=== PATIENT | female | born 1970 | race Caucasian/White ===

== ENCOUNTER 2016-12-25 09:13 | Day surgery (SDC) | payer OTHER ==
[~2016-12-25] VITALS: Ht 162.6 cm; Wt 106.1 kg
[~2016-12-25 09:13] MED LIST: ADVIL,NUPRIN,M200 MG PO; CELEXA20 MG PO; CELEXA40 MG PO; HUMIRA40 MG/0.1 SC; IRON325 MG PO; MEGACE40 MG PO; TYLENOL EXTRA500 MG PO; VITAMIN B125000 MCG PO; VITAMIN D-32000 UNI2 PO; XANAX0.5 MG PO
[2016-12-25 09:44] VITALS: BP 168/87
[2016-12-25 18:24] VITALS: BP 148/94
[2016-12-25 19:48] VITALS: BP 134/91
[2016-12-25 23:34] VITALS: BP 125/55
[2016-12-26 03:35] VITALS: BP 127/68
[2016-12-26 07:02] VITALS: BP 155/76
[2016-12-26 07:29] LABS: EOSINOPHIL (%) 0.2 % (0-5); HEMATOCRIT 37.5 % (36.0-46.0); IMMATURE GRANULOCYTE (%) 0.3 % (0.0-0.7); INSTRUMENT ABS NEUTROPHIL CT 7.7 K/uL; MCH 26.7 PG (29.0-34.0); MCHC 32.3 G/DL (30.0-36.0); MCV 82.6 FL (83-99); MEAN PLAT.VOLUME 11.8 uM^3 (9.5-12.4); MONOCYTE (%) 7.8 % (3-12); MONOCYTE COUNT 0.7 K/uL (0-0.8); NEUTROPHIL (%) 81.3 % (45-76); NEUTROPHIL COUNT 7.7 K/uL (1.8-6.4); PLATELET COUNT 211 K/uL (156-360); RBC DIS.WIDTH-SD 39.3 % (39-53); RED BLOOD COUNT 4.54 M/uL (3.80-5.20)
[2016-12-26 07:35] LABS: ANION GAP 8 MEQ/L (2-14); CHLORIDE 104 MEQ/L (99-109); GFR ESTIMATE (CALCULATED) > 59 mL/min/; GLUCOSE 105 mg/dL (70-99); SAMPLE HEMOLYSIS CHECK 0; SAMPLE ICTERIC CHECK 0; SAMPLE LIPEMIA CHECK 0; SODIUM 138 MEQ/L (136-147); UREA NITROGEN (BUN) 10 mg/dL (9-23)
[2016-12-26 07:49] LABS: WHITE BLOOD COUNT 9.5 K/uL (4.1-10.2)
[2016-12-26 12:05] VITALS: BP 176/82
== END 2016-12-26 12:59 | disposition home or self-care (01) ==
LOC: SDC 09:13 → 2SOUTH 13:33 → 2EAST 18:13
PROVIDERS: Obstetrics & Gynecology Gynecology
DX: N92.1 Excessive and frequent menstruation with irregular cycle (principal); N94.6 Dysmenorrhea, unspecified; D25.0 Submucous leiomyoma of uterus; N80.0 Endometriosis of uterus; N85.6 Intrauterine synechiae; K50.00 Crohn's disease of small intestine without complications; F17.200 Nicotine dependence, unspecified, uncomplicated; E66.09 Other obesity due to excess calories; Z68.41 Body mass index [BMI] 40.0-44.9, adult; Z83.3 Family history of diabetes mellitus; Z82.49 Family history of ischemic heart disease and other diseases of the circulatory system
CPT/HCPCS: 80048; 85025; 87086; 88307; G0378; J0131; J0330; J0690; J1100; J1170; J1644; J1885; J2250; J2270; J2405; J2710; J3010; J7120

== ENCOUNTER 2017-08-26 18:14 | Emergency (ER) | payer OTHER ==
[~2017-08-26] VITALS: Ht 162.6 cm; Wt 104.2 kg
[2017-08-26 19:20] LABS: HEMATOCRIT 44.6 % (36.0-46.0); MCH 28.3 PG (29.0-34.0); MCHC 33.6 G/DL (30.0-36.0); MCV 84.2 FL (83-99); MEAN PLAT.VOLUME 11.1 uM^3 (9.5-12.4); PLATELET COUNT 222 K/uL (156-360); RBC DIS.WIDTH-CV 14.2 % (11.8-14.6); RBC DIS.WIDTH-SD 43.5 % (39-53); WHITE BLOOD COUNT 7.9 K/uL (4.1-10.2)
[2017-08-26 19:31] LABS: CHLORIDE 100 mEq/L (99-109); POTASSIUM 3.9 mEq/L (3.7-5.4); SODIUM 139 mEq/L (136-147)
[2017-08-26 19:34] LABS: GLUCOSE 93 mg/dL (70-99)
[2017-08-26 19:35] LABS: ANION GAP 14 MEQ/L (2-14); TOTAL BILIRUBIN 0.6 mg/dL (0.0-1.0)
[2017-08-26 19:37] LABS: ALKALINE PHOSPHATASE 106 IU/L (3-129); GFR ESTIMATE (CALCULATED) > 59 mL/min/
[2017-08-26 19:38] LABS: UREA NITROGEN (BUN) 19 mg/dL (9-23)
[2017-08-26 19:47] LABS: QUANTITATIVE HCG < 4.0 MIU/ML
[2017-08-26 21:00] LABS: ADD MIUA? YES; BILIRUBIN NEGATIVE; BLOOD SMALL; COLOR YELLOW ((YELLOW)); GLUCOSE (STRIP) NEGATIVE; KETONES 5; LEUKOCYTES NEGATIVE; NITRITE NEGATIVE; PROTEIN (STRIP) 30
[2017-08-26 21:10] LABS: BACTERIA NONE SEEN /HPF; EPITHELIAL CELLS 1+ /HPF; HYALINE CASTS 0-5 /LPF; MUCUS TRACE /LPF; RED BLOOD CELLS 0-5 /HPF (0-5); UCUL ADDED? NO; UNCLASSIFIED CASTS 0-5 /LPF; WHITE BLOOD CELLS 0-5 /HPF (0-5)
[2017-08-26 21:44] LABS: LIPASE 35 U/L (1.0-51.0)
[2017-08-26] MEDS ORDERED: PERCOCET 5/31 TABLET PO (23:30)
[2017-08-26] MEDS ORDERED: PREDNISONE10 MG PO (23:30)
[2017-08-26 23:35] VITALS: BP 154/85
== END 2017-08-26 23:35 | disposition home or self-care (01) ==
LOC: RME 18:14 → EME 18:14 → RME 23:35
DX: K50.90 Crohn's disease, unspecified, without complications (principal); R11.2 Nausea with vomiting, unspecified; K57.30 Diverticulosis of large intestine without perforation or abscess without bleeding; Z90.49 Acquired absence of other specified parts of digestive tract; Z90.710 Acquired absence of both cervix and uterus; Z72.0 Tobacco use
CPT/HCPCS: 74176; 80053; 81003; 83690; 84702; 85027; 99281; 99284; J3010; J7512